=== PATIENT | male | born 1980 | race African-American/Black ===

== ENCOUNTER 2016-05-09 11:05 | Emergency (ER) | payer BC ==
[~2016-05-09 11:05] MED LIST: ELIMITE60 GM TOP; MEDROL PO
[2016-05-09 11:14] LABS: URINE SOURCE CLEAN CATCH
[2016-05-09 11:21] LABS: URINE APPEARANCE CLEAR; URINE BILIRUBIN NEG (NEG); URINE BLOOD NEG (NEG); URINE COLOR YELLOW; URINE GLUCOSE NEG (NEG); URINE KETONE NEG (NEG); URINE LEUKOCYTE ESTERASE NEG (NEG); URINE NITRATE NEG (NEG); URINE PROTEIN NEG (NEG); URINE SPECIFIC GRAVITY 1.015 (1.003-1.035); URINE UROBILINOGEN 0.2 MG/DL (NEG)
[2016-05-09 11:46] LABS: URINE CRYSTALS URIC ACID /[HPF]
[2016-05-09 11:47] LABS: URINE TRICHOMONAS NEGATIVE
[2016-05-09 11:48] LABS: CULTURE INDICATED? NO
[2016-05-14 18:15] LABS: CHLAMYDIA TRACH Not Detected (Not Detected); N GONOR Not Detected (Not Detected)
== END 2016-05-09 11:12 | disposition home or self-care (01) ==
LOC: CFTX 11:05
PROVIDERS: Physician Assistant
DX: Z20.2 Contact with and (suspected) exposure to infections with a predominantly sexual mode of transmission (principal); F17.210 Nicotine dependence, cigarettes, uncomplicated
CPT/HCPCS: 81003; 87491; 87591; 96372; 99283; J0696